=== PATIENT | female | born 1985 | race Two or more races ===

== ENCOUNTER 2025-03-03 18:53 | Emergency (ER) | payer OTHER ==
[~2025-03-03] VITALS: Ht 165.1 cm; Wt 70.4 kg
[2025-03-03 19:09] LABS: PLATELET COUNT (AUTO) 249 K/uL (150-450); RED BLOOD CELL COUNT(AUTO) 4.50 MIL/uL (4.00-5.20); RED CELL DISTRIBUTION WIDTH 14.0 % (11.5-14.5); WHITE BLOOD COUNT (AUTO) 10.0 K/uL (4.5-11.0)
[2025-03-03 19:12] VITALS: TEMP 98
[2025-03-03 19:17] LABS: CALCIUM, TOTAL 9.5 mg/dL (8.8-10.5); CREATININE 0.49 mg/dL (0.60-1.30); GLOMERULAR FILTR. RATE CALC > 60 mL/min (>60); GLUCOSE,RANDOM 112 mg/dL (70-110); SODIUM SERUM 141 mmol/L (136-145); UREA NITROGEN, BLOOD 13 mg/dL (7-18)
[2025-03-03] MEDS: ONDANSETRON HCL 4 MG/2 ML VIAL IVP ONE (19:18)
[2025-03-03] MEDS: SODIUM CHLORIDE 0.9% 1,000 ML IV ONE (19:18)
[2025-03-03 19:28] LABS: TROPONIN I-HIGH SENSITIVITY 4 ng/L (<51)
[2025-03-03 19:36] LABS: ASPARTATE AMINOTRANSFERASE 16.0 U/L (15-37); HCG,QUANTITATIVE 1.0 mIU/mL (0-6); TOTAL PROTEIN, SERUM 7.6 g/dL (6.4-8.2)
[2025-03-03] MEDS: KETOROLAC TROMETHAMINE 30 MG/ML VIAL IVP ONE (20:18)
[2025-03-03] MEDS: METOCLOPRAMIDE HCL 5 MG/ML 2 ML VIAL IVP ONE (20:19)
[2025-03-03 21:57] VITALS: BP 108/65; PULSE 69; RESP 14; O2SAT 97
== END 2025-03-03 22:15 | disposition home or self-care (01) ==
LOC: EMS 18:53
DX: G43.909 Migraine, unspecified, not intractable, without status migrainosus (principal); R07.89 Other chest pain
CPT/HCPCS: 99291; 96374; 96375; 70450; 96361; 80048; 80076; 83690; 84484; 84702; 85025; 36415; 93005; J1885; J1200; J2765; J2405; J7030